=== PATIENT | female | born 1975 | race Caucasian/White ===

== ENCOUNTER → 2022-06-02 | Outpatient (CLI) | payer BC, SELFPAY ==
--- NOTE | 2022-06-02 18:26 | US_ITS ---
STUDY: ULTRASOUND OF THE FEMALE PELVIS - COMPLETE REASON FOR EXAM: Female, 46 years old. FIBROID TECHNIQUE: Endovaginal. Transvaginal US was obtained to better visualized the ovaries. COMPARISON: None. FINDINGS: The uterus is anteverted and is in a midline position. The uterus measures 8.7 x 6.3 cm. There is a Nabothian cyst of the cervix. The endometrium measures 2 mm in thickness, and is heterogeneous (striated). There is no demonstrated endometrial mass. Fibroids visualized. Right fundal fibroid measures 76 x 73 mm. Posterior mid uterine fibroid measures 40 x 32 mm. Posterior left fibroid measures 24 mm. Anterior fibroid measures 12 mm. I.U.D. - The patient does not have an I.U.D. The right ovary is visualized. The right ovary measures 3.1 cm. There is no right ovarian cyst or ovarian mass. There is no visualized right adnexal mass or complex lesion. There is normal arterial and normal venous vascularity. The left ovary is visualized. The left ovary measures 2 cm. There is no left ovarian cyst or ovarian mass. There is no visualized left adnexal mass or complex lesion. There is normal arterial and normal venous vascularity. There is no fluid in the cul-de-sac. Urinary bladder volume is (in cc) 329. US/Pelvic (Non ) IMPRESSION: Fibroid uterus. There are Nabothian cysts of the cervix. Electronically Signed: Stefan Beebe MD at 19:27 EST ,
== END | disposition home or self-care (01) ==
LOC: US 18:23
PROVIDERS: Visit Provider Obstetrics & Gynecology
DX: D25.9 Leiomyoma of uterus, unspecified (principal)
CPT/HCPCS: 76830; 76856

== ENCOUNTER → 2022-11-25 | Outpatient (CLI) | payer BC, SELFPAY ==
--- NOTE | 2022-11-25 12:34 | US_ITS ---
INDICATION: uterine mass EXAMINATION: Ultrasound US Pelvis Non OB Complete With Transvaginal Imaging TECHNIQUE: Transabdominal and endovaginal sonographic images of the pelvis. Grayscale, spectral waveform, and color flow Doppler evaluation of the adnexa. COMPARISON: 06/02/2022 ultrasound. FINDINGS: UTERUS: Anteverted. 8.7 x 5.3 x 6.0 cm. Multiple uterine fibroids with the largest pedunculated fibroid extending from the fundus of the uterus measuring 7.5 cm. Endometrium is unremarkable. Endometrial stripe thickness of 2 mm. RIGHT OVARY: Unremarkable. Normal vascular flow demonstrated with color and pulsed-wave Doppler. LEFT OVARY: Unremarkable. Normal vascular flow demonstrated with color and pulsed-wave Doppler. FREE FLUID: No significant free fluid. US/Pelvic w/ Transvaginal IMPRESSION: Multiple uterine fibroids with the largest measuring 7.5 cm which is pedunculated extending from the fundus of the uterus consistent with a subserosal fibroid. No significant change as compared to the prior ultrasound. Electronically Signed: Michael Lopez DO at 22:57 EDT ,
== END | disposition home or self-care (01) ==
PROVIDERS: Referring Provider Obstetrics & Gynecology; Visit Provider Obstetrics & Gynecology
DX: D25.9 Leiomyoma of uterus, unspecified (principal); N85.8 Other specified noninflammatory disorders of uterus
CPT/HCPCS: 76830; 76856

== ENCOUNTER → 2023-11-14 | Outpatient (CLI) | payer BC, SELFPAY ==
[2023-11-18 12:09] LABS: HPV APTIMA, High Risk Negative (Negative)
== END | disposition home or self-care (01) ==
PROVIDERS: Referring Provider Obstetrics & Gynecology; Visit Provider Obstetrics & Gynecology
DX: Z12.4 Encounter for screening for malignant neoplasm of cervix (principal)
CPT/HCPCS: 87624; 88175; G0145

== ENCOUNTER → 2023-12-06 | Outpatient (CLI) | payer BC, SELFPAY ==
--- NOTE | 2023-12-06 10:04 | BD_ITS ---
STUDY: DUAL ENERGY X-RAY ABSORPTIOMETRY / DXA REASON FOR EXAM: Female, 48 years old. on hormone suppression TECHNIQUE: Bone Mineral Density (BMD) measurements of lumbar spine and bilateral hips were obtained. COMPARISON: None. FINDINGS: Lumbar Spine (L1-L4): g/cm2 (1.072) / T-score (0.2) / Z-score (0.9) Findings are suggestive of normal bone density with a low fracture risk. Left Femur Total: g/cm2 (0.869) / T-score (-0.6) / Z-score (-0.2) Left Femoral Neck: g/cm2 (0.803) / T-score (-0.4) / Z-score (0.2) Right Femur Total: g/cm2 (0.955) / T-score (0.1) / Z-score (0.5) Right Femoral Neck: g/cm2 (0.846) / T-score (0.0) / Z-score (0.6) BD/Dexa Bone Density Study IMPRESSION: The patient is considered normal as outlined below according to World Mike Organization (WHO) criteria with a low fracture risk. Reference Information: The T-score is the number of standard deviations above or below the standard which is normal for young adults at their peak bone mineral density. The World Health Organization (WHO) interprets the T-scores as follows: Above -1 Normal bone density Between -1 and -2.5 Osteopenia Equal to / or below -2.5 Osteoporosis As a practical clinical guideline, osteopenia may be graded as follows: Mild -1 through -1.5 Moderate -1.6 through -2.0 Severe -2.1 through -2.4 The Z-score is the number of standard deviations above or below age-matched controls. A Z-score of less than -1.5 would be considered abnormal. References: 1. NIH Osteoporosis and Related Bone Diseases www osteo.org 2. International Society for Clinical Densitometry www iscd.org 3. National Osteoporosis Foundation www nof.org Electronically Signed: Erick Stubbs MD at 15:39 EDT ,
--- NOTE | 2023-12-06 10:13 | MRI_ITS ---
STUDY: BILATERAL BREAST MR WITHOUT AND WITH CONTRAST REASON FOR EXAM: Female, 48 years old. Family history of breast cancer. TECHNIQUE: Multi-sequence multi-echo imaging of both breasts was performed with a dedicated breast coil. T1-weighted and T2-weighted images were performed before the administration of contrast. T1-weighted images were also performed after the intravenous administration of 12 cc of Clariscan contrast. COMPARISON: Bilateral screening mammogram dated May 23, 2023 FINDINGS: RIGHT BREAST: Scattered fibroglandular densities with no background enhancement. No abnormal enhancing masses or areas of non-mass enhancement in the right breast. LEFT BREAST: Scattered fibroglandular densities with nodular background enhancement. No abnormal enhancing masses or areas of non-mass enhancement in the left breast. No enlarged or abnormal lymph nodes. No abnormality in the visualized regions of the chest or liver. MRI/Breast Bilateral W/O and W IMPRESSION: Normal MRI of the breast with contrast. Alternating MRI with contrast with screening mammogram with the appropriate, given the history provided. CATEGORY: BIRADS Category 1: Negative. A letter regarding these results will be sent to the patient by the facility within 30 days. Electronically Signed: Irving Medley MD at 15:53 EDT ,
== END | disposition home or self-care (01) ==
LOC: OPBD 09:59
PROVIDERS: Referring Provider Obstetrics & Gynecology; Visit Provider Obstetrics & Gynecology
DX: N63.0 Unspecified lump in unspecified breast (principal); Z80.3 Family history of malignant neoplasm of breast; Z79.818 Long term (current) use of other agents affecting estrogen receptors and estrogen levels
CPT/HCPCS: 77049; 77080; A9575; A4216; C8908

== ENCOUNTER → 2024-03-01 | Outpatient (CLI) | payer BC, SELFPAY ==
--- NOTE | 2024-03-01 14:31 | US_ITS ---
HISTORY: monitor fibroid. TECHNIQUE: Transabdominal and transvaginal pelvic ultrasound was performed with bazzi scale and color Doppler evaluation. 123 images. COMPARISON: 11/25/2022. FINDINGS: UTERUS: 9.1 x 5.9 x 7.6 cm. Anteverted. Heterogeneous echotexture with multiple masses measuring up to 7.5 x 9.3 x 9.8 cm at the fundus, 3.4 x 3.9 x 3.4 cm on the left posteriorly, and 2.3 x 2.6 x 2.2 cm left posteriorly. These presumably measured up to 7.5 cm, 3.1 cm, and 2.3 cm. ENDOMETRIAL THICKNESS: 7 mm. RIGHT OVARY: 2.1 x 2.1 x 3.5 cm. 2.1 cm simple cyst. LEFT OVARY: 1.2 x 1.7 x 2.6 cm. No adnexal masses. FREE FLUID: None. URINARY BLADDER: Well-distended at 318 cc. US/Pelvic w/ Transvaginal IMPRESSION: Mild interval increase in size of uterine leiomyomata. Small right ovarian cyst. Electronically Signed: Becca Dodge MD at 15:47 EDT ,
== END | disposition home or self-care (01) ==
LOC: US 14:29
PROVIDERS: Referring Provider Obstetrics & Gynecology; Visit Provider Obstetrics & Gynecology
DX: N85.8 Other specified noninflammatory disorders of uterus (principal); D25.9 Leiomyoma of uterus, unspecified
CPT/HCPCS: 76830; 76856

== ENCOUNTER → 2024-04-18 | Outpatient (CLI) | payer BC, SELFPAY ==
--- NOTE | 2024-04-18 | EMB_PTH ---
PATHOLOGY RESULTS PATIENT: KENDRA CORTES LOC: [facility] U#:[id number] AGE/SX: 48/F ROOM: RE04/18/[address]: NAA Hurst : 1975 BED: DIS: 04/18/2024 SPEC #: [id number] RECD: 04/18/24 17:02 STATUS: EDNA MACIASJoel #: [id number] SWETA: 04/18/24 00:[address]: Meredith Avina NP DEPT: SURGICAL PATHOLOGY RECD BY: Abhijit Martinez ENTERED: 04/19/24 06:30 SP TYPE: ENDOM BX/C BHARGAVI DR: FRANCISCA Cardona Tissues: Endometrium, NOS Procedures: Surgery Specimen Level IV HEADER OPERATION: Endometrial biopsy PRE-OP DIAGNOSIS: Thickened endometrium TISSUE SUBMITTED: Endometrial lining MICROSCOPIC DIAGNOSIS Endometrial biopsy: Disordered proliferative endometrium with focal glandular breakdown. Focal minimal chronic endometritis. See comment. SJ.mr 04/20/2024 COMMENT Clinical correlation and appropriate follow up are necessary. Case has been reviewed in consultation with Dr. Arenas who concurs with the above diagnosis. IDC:AM MICROSCOPIC DESCRIPTION Slides are reviewed. GROSS DESCRIPTION Received is one container labeled with the patient's name and not further designated. The specimen consists of multiple fragments of mitchell-pink soft tissue mixed with mucoid tissue that in aggregate measure 3.0 x 2.5 x 0.3 cm. The specimen is totally submitted in one cassette. 04/19/2024 TC:5 CPT:15507
== END | disposition home or self-care (01) ==
LOC: LABSPEC 15:32
PROVIDERS: Referring Provider Nurse Practitioner Women's Health; Visit Provider Nurse Practitioner Women's Health
DX: R93.89 Abnormal findings on diagnostic imaging of other specified body structures (principal)
CPT/HCPCS: 88305

== ENCOUNTER 2024-06-26 06:08 | Day surgery (SDC) | payer BC, SELFPAY ==
[2024-06-21 10:31] LABS: Hematocrit 39.5 % (37-47); Hemoglobin 13.3 g/dL (12.0-15.0); Mean Corp Hgb Conc 33.7 g/dL (32-36); Mean Corpuscular Hgb 32.3 pg (27.0-32.0); Mean Corpuscular Volume 95.9 fL (81-99); Mean Platelet Vol. 10.1 fl (6.2-12.0); Platelet Count 262 K/mm3 (150-450); RBC Distribution Width CV 11.8 % (11.6-14.6); RBC Distribution Width SD 41.4 fl (35.1-43.9); Red Blood Count 4.12 M/mm3 (4.2-5.4); White Blood Count 6.5 K/mm3 (4.4-11.0)
[2024-06-21 10:52] LABS: Magnesium 2.1 mg/dL (1.6-2.6)
[2024-06-26] VITALS (14 sets, daily range): BP systolic 111–134; BP diastolic 59–79; PULSE 49–84; RESP 14–18; TEMP 36.4–38; O2SAT 90–100; BMI 23.8
--- NOTE | 2024-06-26 | HYST_PTH ---
PATIENT: KENDRA CORTES LOC: [facility]#:[id number] AGE/SX: 48/F ROOM: RE06/26/[address]: Dr. Cherie Argueta DO : 1975 BED: DIS: 06/26/2024 SPEC #: [id number] RECD: 06/26/24 10:57 STATUS: EDNA HANKINS #: [id number] SWETA: 06/26/24 00:[address]: Cherie Argueta DEPT: SURGICAL PATHOLOGY RECD BY: Abhijit Martinez ENTERED: 06/26/24 11:41 SP TYPE: HYSTERECT OTHR DR: FRANCISCA Cardona Tissues: A - TISSUE SURGICALLY REMOVED B - Uterus, NOS Procedures: Surgery Specimen Level III Surgery Specimen Level IV HEADER OPERATION: Laparoscopic robotic hysterectomy, bilateral salpingectomy, cystoscopy PRE-OP DIAGNOSIS: Uterine fibroid, skin tag TISSUE SUBMITTED: A- Left inner thigh lipoma, B- Bilateral tubes, uterus, cervix MICROSCOPIC DIAGNOSIS A. Left inner thigh lipoma, excision: A polypoid piece of skin, consistent with skin tag. Pieces of mature adipose tissue, consistent with lipoma. B. Uterus, cervix, bilateral fallopian tubes, hysterectomy, bilateral salpingectomy: Cervix - Chronic inflammation. - A leiomyoma (1.0cm in greatest dimension). Endometrium - Proliferative endometrium. Myometrium - Intramural and subserosal leiomyomas. Bilateral fallopian tubes - no pathologic diagnosis. Left paratubal cyst. . 06/28/2024 MICROSCOPIC DESCRIPTION Slides are reviewed. GROSS DESCRIPTION A. Received in fixative is one container labeled with the patient's name and designated Left inner thigh lipoma. The specimen consists of a polypoid piece of mitchell-white skin measuring 2.0 x 1.5 x 0.7cm. This piece is inked and bisected. Also present in the container is a piece of yellow adipose tissue measuring 3.0 x 2.0 x 1.5cm. Also present is a smaller piece of adipose tissue measuring 1.0 x 0.5 x 0.3cm. Sections reveal yellow adipose cut surfaces without area of hemorrhage, necrosis or cystic degeneration. The smaller adipose tissue is submitted in entirety. Log Handler sections are submitted as follows: 1- polypoid piece of skin, 2- yellow adipose tissue. B. Received in fixative is one container labeled with the patient's name and designated uterus, cervix, bilateral fallopian tubes. The specimen consists of a hysterectomy specimen in multiple pieces. One of the pieces are partly disrupted uterus with cervix and attached bilateral fallopian tubes. The uterus with cervix weighs 40 gm and measures 7.0 x 5.5 x 3.5 cm. The serosal surface is mitchell glistening. Serosal surface shows a focal ragged area most likely representing the detached nodular pieces of tissue. Two subserosal nodules are also noted. The ectocervical mucosa is unremarkable. The external os is circular in contour. The endocervical canal measures 3.5 cm in length and the endocervical mucosa is mitchell glistening unremarkable. The endometrial cavity is compressed one side and measures 4.0 cm in length and 3.0 cm in width. The endometrium is mitchell and measures 0.1 cm in thickness. Sections reveal two intramural nodular masses measuring 1.5 and 2.5cm in greatest dimension. Two smaller subserosal nodular masses are also noted measuring 0.7 and 1.0cm in greatest dimension. Sections of cervix also reveal a nodular mass measuring 1.0cm in greatest dimension. Sections of these masses reveal mitchell whorled cut surfaces without areas of hemorrhage, necrosis or cystic degeneration. Uterine wall measures 2.5cm in thickness. Also present in the container are multiple detached pieces of nodular tissue measuring in aggregate 15.0 x 13.0 x 6.0cm and weighing in aggregate 242gm. Sections of these pieces reveal multiple nodular masses. Largest nodular mass measures 7.0cm in greatest dimension. The right fallopian tube measures 8.5cm in length and 0.5cm in diameter. Fimbrial end is identified. Sections reveal unremarkable cut surfaces. Left fallopian tube is similar in appearance to right and measures 6.5cm in length and 0.6cm in diameter. A paratubal cyst is also noted measuring 0.6cm in greatest dimension and filled with clear fluid. Log Handler sections are submitted in twelve cassettes as follows: 1 - anterior cervix, 2 - posterior cervix and cervical nodular mass, 3 & 4 - anterior uterine wall, 5 & 6 - posterior uterine wall, 7- intramural and subserosal nodular masses in the uterus, 8-10- detached nodular pieces of tissue ( cassette 8 contains the largest nodular mass, 9- second largest nodular mass, 10- third largest nodular mass), 11- right fallopian tube, 12- left fallopian tube and paratubal cyst. SJ: 06/26/2024 TC:1 CPT: 74907
[2024-06-26 06:34] LABS: Internal QC Validated? YES +Cl - CLEAR BKGD; Pregnancy, Urine Negative Negative
[2024-06-26] MEDS: Acetaminophen 500 MG Tablet 1000 MG PO (06:43)
[2024-06-26] MEDS: Magnesium 1 GM over 15 mins IV (06:43)
[2024-06-26] MEDS: Scopolamine 1mg/72hr Patch 1 PATCH TD (06:43)
[2024-06-26] MEDS: Celecoxib 200 MG Capsule 400 MG PO (06:44)
[2024-06-26] MEDS: Gabapentin 600 MG Tablet PO (06:44)
[2024-06-26] MEDS: Phenazopyridine 95 MG Tablet 190 MG PO (06:44)
[2024-06-26] MEDS: Lactated Ringers 1,000 ML 40 ML IV (06:56)
--- NOTE | 2024-06-26 06:59 | PRE.ANES_ITS ---
ASA Classification* ASA Classification ASA Classification: 2 Assessment & Plan Anesthesia* Anesthesia Assessment Anesthesia Assessment: Discussed sedation and/or anesthesia options, risks, benefits, and alternatives with patient/parents/legal guardian/POA. Questions invited. The patient/parents/legal guardian/POA seems to understand and agrees to proceed with anesthesia plan. Reviewed the physical assessment, medical history, allergy history and patient home medications list prior to surgery/procedure/anesthetic and documented any changes. Performed airway and anesthesia risk assessments. Anesthesia Type Anesthesia Type: General Anesthesia Focused Assessment* Temperature: 99.4 F Pulse Rate: 61 Blood Pressure: 115/70 Respiratory Rate: 16 Pulse Ox: 100 Airway Assessment Mouth opens: >3 cm Mallampati Score: II Focused Labs Anesthesia Preop lab: CBC WBC 6.5 K/mm3 (4.4-11.0) 06/21/24 10:13 RBC 4.12 M/mm3 (4.2-5.4) L 06/21/24 10:13 Hgb 13.3 g/dL (12.0-15.0) 06/21/24 10:13 Hct 39.5 % (37-47) 06/21/24 10:13 Plt Count 262 K/mm3 (150-450) 06/21/24 10:13 CHEMISTRY Magnesium 2.1 mg/dL (1.6-2.6) 06/21/24 10:13 COAG Urine Test Negative Negative 06/26/24 06:20 Pre-Assessment Diagnosis/Proposed Procedure Planned Operative Procedure(s): (B) Lap Robotic Hysterectomy Giorgio Salping, Cystoscopy Anesthesia History 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 When Was Last Pacemaker Check QUESTION #4 FULL TEXT: You/Your Family Experience fever (hyperthermia) with Anesthesia Last Oral Intake Last Oral intake: Last Oral Intake NPO since 19:00 06/26/24 06:46 Meds taken in AM with sips of No 06/26/24 06:46 water? 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 Female Yes 06/12/24 10:19 HX of Motion Sickness Yes 06/12/24 10:19 HX of N/V After Surgery No 06/12/24 10:19 Non-Smoker Yes 06/12/24 10:19 Duration of Surgery greater No 06/12/24 10:19 than 60 minutes Number of Risk Factors 3 06/12/24 10:19 PONV Score Moderate Risk 06/12/24 10:19 Height & Weight Height & Weight: Anesthesia: Height & Weight Height 5 ft 4 in 06/26/24 06:46 Weight: 63 kg 06/26/24 06:46 Body Mass Index (BMI) 23.8 06/26/24 06:46 Respiratory Assessment Respiratory Assessment - composition teacher: Respiratory Tract Infection Hx - composition teacher Hx Respiratory Tract Infection No 06/12/24 10:19 STOP Sleep Apnea STOP Sleep Apnea - composition teacher: STOP Sleep Apnea - composition teacher Hx Hypertension No 06/12/24 10:19 Hx Sleep Apnea No 06/12/24 10:19 CPAP BIPAP Do you snore loudly (louder No 06/12/24 10:19 than talking or can be heard Do you often feel tired/ No 06/12/24 10:19 fatigued/ sleepy during daytime? Has anyone observed you stop No 06/12/24 10:19 breathing during sleep? STOP Results Negative 06/12/24 10:19 QUESTION #5 FULL TEXT : Do you snore loudly (louder than talking or can be heard through closed doors)? 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 Specify any problems Hx of Preganancy in last 3 No 06/12/24 10:19 Months Nurse Filling Out Transfusion VCHRISTIN 06/12/24 10:19 & Questions: Date: 06/12/24 06/12/24 10:19 Time: 10:20 06/12/24 10:19 Patient unable to answer at this time (ie. confused, unrespo /Reproduction History /Reproductive History - composition teacher: /Reproductive Hx- composition teacher Hx Now No 06/12/24 10:19 Gestational Age (in weeks): EDC: Hx Hx Para Hx Section SAB No 06/12/24 10:19 Active Medications Active Medications: Current Medications Generic Name Dose Route Start Last Admin Trade Name Freq PRN Reason Stop Dose Admin Acetaminophen 1,000 mg 06/26/24 08:15 06/26/24 06:43 Acetaminophen 500 Mg Tablet PO 06/26/24 08:16 1,000 mg PREOP ONE Administration Celecoxib 400 mg 06/26/24 08:15 06/26/24 06:44 Celecoxib 200 Mg Capsule PO 06/26/24 08:16 400 mg X1 ONE Administration Gabapentin 600 mg 06/26/24 08:15 06/26/24 06:44 Gabapentin 600 Mg Tablet PO 06/26/24 08:16 600 mg PREOP ONE Administration Lactated Ringer's 1,000 mls @ 40 mls/hr 06/26/24 08:15 06/26/24 06:56 IV 40 mls/hr .Q25H KENDRA Administration Cefazolin Sodium 2 gm/ Sodium 110 mls @ 150 mls/hr 06/26/24 08:15 Chloride IV 06/26/24 08:58 PREOP ONE Lactated Ringer's 1,000 mls @ 40 mls/hr 06/26/24 08:15 IV .Q25H KENDRA Magnesium Sulfate 1 gm/ 102 mls @ 408 mls/hr 06/26/24 08:15 06/26/24 06:43 Dextrose IV 06/26/24 08:29 408 mls/hr X1 ONE Administration Insulin Human Lispro 0 unit 06/26/24 08:15 Insulin Lispro 100 Unit/Ml Insuln.Pen SC 06/26/24 18:00 Q4H PRN PRN BG >/= 180, SEE PROTOCOL Protocol Ondansetron HCl 4 mg 06/26/24 08:15 Ondansetron 4 Mg/2 Ml Vial IV 06/26/24 08:16 X1 ONE Phenazopyridine HCl 190 mg 06/26/24 08:15 06/26/24 06:44 Phenazopyridine 95 Mg Tablet PO 06/26/24 08:16 190 mg X1 ONE Administration Scopolamine HBr 1 patch 06/26/24 08:15 06/26/24 06:43 Scopolamine 1mg/72hr Patch TD 06/26/24 08:16 1 patch X1 ONE Administration PFSH Medical History Wears contact lenses Wears glasses Non-smoker History of irregular heartbeat Home Medications ?Medication ?Instructions ?Recorded ?Last Taken ?Type ascorbic acid (vitamin C) 500 mg 500 mg PO DAILY 11/18/21 06/25/24 History tablet multivitamin 1 tab PO DAILY 11/18/21 06/25/24 History estradiol 0.01% (0.1 mg/gram) 1 g vaginal DAILY 10/05/23 06/20/24 History vaginal cream leuprolide 3.75 mg intramuscular 3.75 mg IM QMONTH 12 months #1 ea 03/05/24 05/12/24 Rx syringe kit (Lupron Depot) Allergy/AdvReac Type Severity Reaction Status Date / Time venom-wasp Allergy Angioedema, Verified 06/26/24 06:40 Generalized Rash Family History Father CAD (coronary artery disease) Skin cancer CVA (cerebral vascular accident) Mother Bleeding disorder Skin cancer Cancer Breast cancer, Onset Age: 83 Sister Bleeding disorder Grandmother Breast cancer Grandfather Leukemia Social History Smoking Status: Never smoker alcohol intake: current alcohol intake frequency: holidays/special occasions only substance use type: does not use caffeine: Yes what type of physical activity do you participate in: bicycling frequency: 3-4 times per week seatbelt use: always do you feel safe at home: Yes 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
[2024-06-26 07:09] LABS: Bedside Glucose 77 mg/dL (74-106)
--- NOTE | 2024-06-26 07:25 | PCM.HP.BLA ---
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 Is patient in pain?: No Allergies venom-wasp Allergy (Verified 06/01/24 14:21) NEEDS FOLLOW-UP Post menopausal: No Patient : No : No PFSH Family History Father CAD (coronary artery disease) Skin cancer CVA (cerebral vascular accident)Mother Bleeding disorder Skin cancer Cancer Breast cancer, Onset Age: 83Sister Bleeding disorderGrandmother Breast cancerGrandfather Leukemia Social History Smoking Status: Never smoker alcohol intake: current alcohol intake frequency: holidays/special occasions only substance use type: does not use caffeine: Yes what type of physical activity do you participate in: bicycling frequency: 3-4 times per week seatbelt use: always do you feel safe at home: Yes 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 She is scheduled for a total robotic hysterectomy due to persistent but slowly enlarging uterus despite depo Lupron for the last 24 months. ultrasound showed the following: HISTORY: monitor fibroid. TECHNIQUE: Transabdominal and transvaginal pelvic ultrasound was performed with bazzi scale and color Doppler evaluation. 123 images. COMPARISON: 11/25/2022. FINDINGS: UTERUS: 9.1 x 5.9 x 7.6 cm. Anteverted. Heterogeneous echotexture with multiple masses measuring up to 7.5 x 9.3 x 9.8 cm at the fundus, 3.4 x 3.9 x 3.4 cm on the left posteriorly, and 2.3 x 2.6 x 2.2 cm left posteriorly. These presumably measured up to 7.5 cm, 3.1 cm, and 2.3 cm. ENDOMETRIAL THICKNESS: 7 mm. RIGHT OVARY: 2.1 x 2.1 x 3.5 cm. 2.1 cm simple cyst. LEFT OVARY: 1.2 x 1.7 x 2.6 cm. No adnexal masses. FREE FLUID: None. URINARY BLADDER: Well-distended at 318 cc. US/Pelvic w/ Transvaginal IMPRESSION: Mild interval increase in size of uterine leiomyomata. Small right ovarian cyst. History 0 Elective abortions Hx Para Spontaneous abortions Hx # Term Pregnancies Ectopic pregnancies Hx # Pregnancies Multiple births # of living children ROS Const ROS Unobtainable: All systems reviewed & are unremarkable except as noted in H Resp Resp: Reports system reviewed and no additional complaints, except as documented; Denies cough GI GI: Reports as per HPI Psych Psych: Reports system reviewed and no additional complaints, except as documented Exam Const General: cooperative, healthy appearing, comfortable and no acute distress Resp Effort & Inspection: normal respiratory effort Skin General: no rashes or lesions noted Psych Appearance: grossly normal Speech and Movement: speech and movement normal Coding Level of Care Code Off vis,est,level 4 Diagnoses Skin tag L91.8 Uterine leiomyoma, unspecified location D25.9 Uterine leiomyoma location: unspecified location Assessment and Plan Assessment and Plan (1) Skin tag: Status: Acute Comment: large, 2cm with large base/would like removed at time of hysterectomy left inner groin (2) Fibroid, uterine: Status: Acute Qualifiers: Uterine leiomyoma location: unspecified location Qualified Code(s): D25.9 - Leiomyoma of uterus, unspecified Plan: After discussing the patient's diagnosis and treatment plan options, patient wishes to proceed with surgical management. I have discussed with the patient the risks, benefits, and alternatives of the procedure which include but are not limited to risks of anesthesia, bleeding, infection, possible damage to bowel, bladder, or surrounding vasculature which could lead to additional surgery to evaluate any complications. Patient agrees to procedure and wishes to proceed. ACOG/uptodate references given for additional information regarding procedure. plan is for total robotic hysterectomy, bs, cysto and removal of a leg skin tag
--- NOTE | 2024-06-26 07:27 | DCINST_ITS ---
Discharge Instructions Diet Discharge Diet: No restrictions DC O2, CPAP, BIPAP needs Home O2 Discharge instructions: No Dressing / Incision Discharge Activity: May Not Drive (for 24 hours ) and May Shower May resume sexual activity in: 8 weeks Weight Bearing Status: Full weight bearing Dressing / Incision Call your doctor if your incision/area has: Continuous Slow Oozing, Sudden Increased Bleeding, Increased Pain/ Swelling, Increased Redness and Foul Smelling Discharge Call your doctor if you observe: Fever of 101 or Higher, Using more than 1 pad per hour, Shortness of breath, Chest pain and Uncontrolled pain Suture Line Care: Avoid Pulling/Pushing (avoid lifting more than10 pounds for 2 weeks ) and Avoid Pinching/Bending Remove Dressing in: 1 week (if present) Cleanse incision/area with: Soap & Water and Keep Dressing Clean & Dry Follow Up Care Please Follow Up With: Cherie Argueta DO When: Call to make an appointment with your doctor for a postop visit in 2 and 6 weeks Test Results: Test results from this visit will be discussed in further detail at your follow- up appointment, if applicable. Discharge Plan Admission Primary Reason for Your Visit: hysterectomy Attending Provider: Cherie Argueta Primary Care Provider: Coral Willson Instructions Print Language: Maltese Discharge Orders/Prescriptions Prescriptions: New ibuprofen 800 mg tablet 800 mg PO Q8H PRN (Reason: pain) Qty: 30 0RF ondansetron HCl 4 mg tablet 4 mg PO Q6H PRN (Reason: nausea and vomiting) Qty: 20 0RF oxycodone-acetaminophen [Percocet] 5-325 mg tablet 1 tab PO Q4H PRN (Reason: pain) 7 Days Qty: 30 0RF Rx Instructions: 1-2 tabs q 4 hrs as needed for pain Continued multivitamin Tablet 1 tab PO DAILY ascorbic acid (vitamin C) 500 mg tablet 500 mg PO DAILY estradiol 0.01 % (0.1 mg/gram) cream 1 g vaginal DAILY Rx Instructions: FROM [facility] Lupron Depot 3.75 mg syringe kit 3.75 mg IM QMONTH 360 Days Qty: 1 11RF Rx Instructions: Bring to office for administration each month. Referrals / Follow Up: Coral Willson PA [Primary Care Provider] - Disposition Disposition (needs filled in before D/C Order can be placed): Home, Self Care
[2024-06-26] MEDS: Cefazolin 2 GM in 0.9% Normal Saline (100mL Bag) 100 ML IV (08:30)
[2024-06-26] MEDS: Ondansetron 4 MG/2 ML Vial IV (10:14)
[2024-06-26] MEDS: Bupivacaine 0.25% 30 ML Vial (10:18)
--- NOTE | 2024-06-26 10:19 | OP.PCM_ITS ---
Problems Associated Problem List Diagnoses (1) Fibroid, uterine: Multi Select Codes Urinary/Genital Urinary/Genital CPT Codes: 21863 Cystoscopy and 13741 TLH+BS/O >250gr uterus Operative Report (Standard) Operative Information Date of Procedure: 06/26/24 Pre-Operative Diagnosis: Enlarged fibroid uterus, left perilabial lipoma Post-Operative Diagnosis: Same as preoperative Surgery/Procedure Performed: Total robotic hysterectomy bilateral salpingectomy cystoscopy and removal of left Mj labial lipoma motor equipment sergeant: Yes Collision Repairer: Rob Warner Tasks completed by printer's assistant: Closing, Insert Trochanter, Trocar and Retracting Additional assistant professor of life sciences?: No Type of Anesthesia: General RN Documented Start/Stop Times: Operation Date: 06/26/24 08:15 Case Time Into Pre-Op 06/26/24 06:11 Out of Pre-Op 06/26/24 08:18 Anesthesia Start 06/26/24 08:24 Into Room 06/26/24 08:24 Procedure Start 06/26/24 08:51 Procedure Start Time: 08:51 Procedure Stop Time: 10:26 Select all DRAINS/GRAFTS/IMPLANTS that apply: None Estimated Blood Loss: 100 cc Fluids Replaced: 1100 cc Specimen collected: Yes Description of specimen(s) removed: Uterus with fibroid fragments left perilabial lipoma Description of surgery: Reason for surgery: This is a 48-year-old G0, P0 who presented to my office with history of enlarged fibroid uterus. She tried letrozole for 2 years to try to shrink the fibroid however it remained the same size or slightly larger after 2 years. The patient elected then for a hysterectomy. The planned procedure is for a robotic hysterectomy the risks benefits and alternatives were discussed with the patient the patient had a clear understanding of the procedure and a consent form was signed. Procedure: The patient was placed in the dorsal low lithotomy position and prepped and draped in the normal sterile fashion both abdominally and in the perineum. Her legs were placed in stirrups a Falk catheter was inserted into the urethra without difficulty. The left perilabial large skin tag was noted grasped with pickups. The base of the skin tag was cut using sterile scissors. Once this was removed it was noted that fatty material was protruding from the base of the incision. This was then noted to be likely a lipoma. The lipoma was dissected out toward and the incision was closed with a 4-0 Monocryl subcuticular stitch then sealed with surgical glue. A weighted speculum was placed in the vagina and a single-tooth tenaculum was used to grasp the anterior lip of the cervix. An advincula uterine manipulator was inserted through the cervix without complication. It was then tied into place at the 2 and 10:00 locations on the cervix. Gloves were changed and attention was turned towards the abdomen. Approximately 23 cm above the pubic symphysis in the midline, and after Marcaine injection, a 8 mm incision was made. An 8 mm trocar was inserted through the laparoscope, then inserted into the abdomen under direct visualization using the laparoscope. Good abdominal placement was noted and no complications were appreciated. An air seal device was utilized to create pneumoperitoneum. At 12 cm lateral to the midline on the left and right sides 8 mm accessory ports were placed. Next a left upper quadrant 8 mm assistant professor of life sciences port site was placed. The patient was placed in steep Trendelenburg position. The robot was docked. The hysterectomy was initiated first by taking down the round ligament on each side using the vessel sealer device. The fallopian tubes were grasped and the underlying mesosalpinx was cauterized and cut using the vessel sealer device on both sides. The round ligaments were cauterized and cut. The broad ligament was then and taken down using the vessel sealer device. Next the bladder flap was taken down without complication. This was done using monopolar cautery to the level of the cervical vaginal junction. After the bladder flap was created, uterine vessels were then isolated and cauterized using the vessel sealer device and EndoShears. At this point the uterine vessels were taken down further starting from the ascending branch, dissecting along the edges of the cervix to the level of the cervical vaginal junction with hemostasis appreciated. The cervical vaginal junction was then using monopolar cautery in a circumferential pattern across the superior aspect of the cervix. The uterus was noted to be only 7 cm in size and delivered easily from the vagina. However the 12 cm fibroid was much too large to fit through without morcellation. Using an 11 blade the fibroid was trimmed and several sections.the pieces were removed separately until the bulk of the tumor was easily removed. All specimens were sent to pathology. The remaining vaginal cuff was then closed using a V lock suture. This was performed in a running technique. Excellent hemostasis was obtained and good closure was noted. Irrigation was then performed. All operative sites were noted to be hemostatic. A cystoscopy was performed with a 70 degree cystoscope through the urethra into the bladder without complication. The bladder was instilled with approximately 250 cc of normal saline. Intraoperative images were made. Ureteral orifices and jets were identified. No suture material was appreciated in the bladder. The bladder was then drained and cystoscope was removed. The abdominal cavity was again examined using the laparoscope after the robot was undocked. All operative sites were noted to be hemostatic. The trochars were removed under direct visualization without complication and pneumoperitoneum was reduced. At this point the skin was then closed using 4-0 Monocryl subcuticular stitch and sealed with surgical glue. The patient tolerated the procedure well sponge lap and needle counts were correct x2 the patient was taken to the recovery room in stable condition. Surgical Findings: Left Mj labial lipoma, 12 cm pedunculated fibroid, intrauterine fibroid. Normal fallopian tubes and ovaries. Normal bladder. At the end of the procedure the uterus and fibroid weighed 308 g. Complications Complications: No Admit VTE Documentation VTE Present on Admission: Yes VTE Mechan Device Prophylaxis: SCD's VTE Pharm Prophylaxis ordered?: No
--- NOTE | 2024-06-26 10:43 | PCM.POST.ANE ---
Anesthesia: Postop Eval I Current Vital Signs Temperature: 97.6 F Pulse Rate: 77 Blood Pressure: 125/77 Respiratory Rate: 16 Pulse Ox: 95 Oxygen Delivery Method: Nasal Cannula (per ERAS) Oxygen Flow Rate (L/min): 2 Assessment Airway patent: Yes Spontaneous unlabored respirations: Yes Mental status: Awake and Calm nausea: No Vomiting: No Anesthesia Complication: No Fluid Hydration Crystalloid volume administer (ml): 1,100 Total IV fluid infused: 1,100 Progress Note Anesthesia document: Postop Eval 1 completed: Yes
[2024-06-26] MEDS: HYDROcodone Bitartrate/Apap 5/325 Tablet PO (13:45)
--- NOTE | 2024-06-26 15:31 | POSTOPAN2_ITS ---
Anesthesia Postop Eval I Sum Postop Eval Completion status Anesthesia document: Postop Eval 1 completed: Yes Anesthesia Postop Eval I Summary Anesthesia Postop Eval I Summary: Anesthesia Postop Eval I: Assessment Summary Airway patent Yes 06/26/24 10:45 [email or web address] Spontaneous unlabored Yes 06/26/24 10:45 [email or web address] respirations Mental status Awake,Calm 06/26/24 10:45 [email or web address] nausea No 06/26/24 10:45 [email or web address] Vomiting No 06/26/24 10:45 [email or web address] Anesthesia Postop Eval I: Fluid Summary Crystalloid volume administer 1,100 06/26/24 10:45 [email or web address] (ml) Colloids volume administered ( ml) Blood Product volume administered (ml) Total IV fluid infused 1,100 06/26/24 10:45 [email or web address] Anesthesia Postop Eval I: Summary Notes Anesthesia Complication No 06/26/24 10:45 [email or web address] Anesthesia Complication Comment: Post-operative progress note Anesthesia: Postop Eval II Evaluation Mental status: Awake Pain Level: 0 nausea: No Vomiting: No
--- NOTE | 2024-06-26 15:31 | PCM.POSTANE2 ---
Anesthesia Postop Eval I Sum Postop Eval Completion status Anesthesia document: Postop Eval 1 completed: Yes Anesthesia Postop Eval I Summary Anesthesia Postop Eval I Summary: Anesthesia Postop Eval I: Assessment Summary Airway patent Yes 06/26/24 10:45 [email or web address] Spontaneous unlabored Yes 06/26/24 10:45 [email or web address] respirations Mental status Awake,Calm 06/26/24 10:45 [email or web address] nausea No 06/26/24 10:45 STRAP [email or web address] Vomiting No 06/26/24 10:45 [email or web address] Anesthesia Postop Eval I: Fluid Summary Crystalloid volume administer 1,100 06/26/24 10:45 [email or web address] (ml) Colloids volume administered ( ml) Blood Product volume administered (ml) Total IV fluid infused 1,100 06/26/24 10:45 [email or web address] Anesthesia Postop Eval I: Summary Notes Anesthesia Complication No 06/26/24 10:45 [email or web address] Anesthesia Complication Comment: Post-operative progress note Anesthesia: Postop Eval II Evaluation Mental status: Awake Pain Level: 0 nausea: No Vomiting: No
== END 2024-06-26 16:50 | disposition home or self-care (01) ==
LOC: SDC 06:08 → AC 06:09
PROVIDERS: Referring Provider Obstetrics & Gynecology; Visit Provider Obstetrics & Gynecology
PROC: 0UT90ZZ Resection of Uterus, Open Approach (ICD-10-PCS; CPT 58571; principal; 2024-06-26 07:55)
DX: D25.2 Subserosal leiomyoma of uterus (principal); D25.1 Intramural leiomyoma of uterus; N83.8 Other noninflammatory disorders of ovary, fallopian tube and broad ligament; L91.8 Other hypertrophic disorders of the skin
CPT/HCPCS: 58571; S2900; 11200; 00840; 36415; 81025; 82962; 83735; 85027; 86850; 86900; 86901; 88304; 88305; A4216; J2405; J3475